=== PATIENT | male | born 1995 | race Two or more races ===

== ENCOUNTER 2020-03-15 11:00 | Emergency (ER) | payer MEDICAID, OTHER, SELFPAY ==
[~2020-03-15] VITALS: Ht 177.8 cm; Wt 96.6 kg
[2020-03-15 11:02] VITALS: BP 140/79
[2020-03-15] MEDS ORDERED: KETOROLAC 30 MG/1 ML IM ONE (11:30)
[2020-03-15] MEDS ORDERED: KETOROLAC 60 MG/2 ML ONE (11:35)
[2020-03-15 11:58] LABS: BASOPHILS % (AUTO) 1 % (0-1); EOSINOPHILS % (AUTO) 0 % (1-7); LYMPHOCYTES % (AUTO) 41 % (22-44); MEAN CORPUSCULAR HEMOGLOBIN 30.6 pg (27.5-34.5); MEAN CORPUSCULAR HGB CONC 34.1 g/dL (33.2-36.2); MONOCYTES % (AUTO) 9 % (2-9); NEUTROPHILS % (AUTO) 49 % (42-75); PLATELET COUNT 246 x10^3/uL (130-400); RED BLOOD COUNT 5.44 x10^6/uL (4.38-5.82); RED CELL DISTRIBUTION WIDTH 12.8 % (9.4-14.8)
[2020-03-15 11:59] LABS: MD NO
[2020-03-15 12:04] LABS: ALBUMIN 4.2 g/dL (3.4-5.0); ANION GAP 6 mmol/L (5-15); CALCIUM 9.5 mg/dL (8.5-10.1); CHLORIDE 106 mmol/L (98-107); CREATININE 0.97 mg/dL (0.7-1.3)
== END 2020-03-15 13:50 | disposition home or self-care (01) ==
LOC: ED 11:27
DX: M94.0 Chondrocostal junction syndrome [Tietze] (principal); R20.0 Anesthesia of skin
CPT/HCPCS: 36415; 71046; 80048; 82040; 85025; 93005; 96372; 99285; J1885

== ENCOUNTER 2020-05-19 13:34 | Emergency (ER) | payer OTHER ==
[~2020-05-19] VITALS: Ht 180.3 cm; Wt 98.7 kg
[2020-05-19 14:12] LABS: ALBUMIN 4.5 g/dL (3.4-5.0); ANION GAP 8 mmol/L (5-15); BASOPHILS % (AUTO) 1 % (0-1); CALCIUM 9.6 mg/dL (8.5-10.1); CHLORIDE 104 mmol/L (98-107); CREATININE 0.99 mg/dL (0.7-1.3); EOSINOPHILS % (AUTO) 1 % (1-7); LYMPHOCYTES % (AUTO) 35 % (22-44); MEAN CORPUSCULAR HEMOGLOBIN 30.8 pg (27.5-34.5); MEAN CORPUSCULAR HGB CONC 34.3 g/dL (33.2-36.2); MEAN PLATELET VOLUME 9.2 fL (7.4-10.4); MONOCYTES % (AUTO) 8 % (2-9); NEUTROPHILS % (AUTO) 55 % (42-75); PLATELET COUNT 275 x10^3/uL (130-400); RED BLOOD COUNT 5.78 x10^6/uL (4.38-5.82)
[2020-05-19 14:13] LABS: MD NO
--- NOTE | 2020-05-19 14:28 | NUR ---
PT C/O LEFT FLANK PAIN STARTED LAST NIGHT. HX: CONGENITAL LEFT KIDNEY ONLY. PT AMBULATED TO RESTROOM WITH STEADY GAIT TO PROVIDE URINE SAMPLE. UA COLLECTED AND SENT TO LAB. PT CONNECTED TO MONITORING.
[2020-05-19 14:31] VITALS: BP 121/64
[2020-05-19 14:39] LABS: MICROSCOPIC INDICATED
--- NOTE | 2020-05-19 14:46 | NUR ---
REPORT GIVEN TO PRIMARY RN.
--- NOTE | 2020-05-19 14:52 | NUR ---
BEDSIDE ULTRASOUND COMPLETED
== END 2020-05-19 16:12 | disposition home or self-care (01) ==
LOC: ED 14:37
DX: M54.5 Low back pain (principal)
CPT/HCPCS: 36415; 74018; 76770; 80048; 81001; 82040; 85025; 99285